=== PATIENT | male | born 1930 | race Caucasian/White ===

== ENCOUNTER 2017-10-16 09:35 | Emergency (ER) | payer MEDICARE, BC ==
[2017-10-16 09:41] VITALS: TEMP 97.1
[2017-10-16 10:17] LABS: HEMATOCRIT 39 % (39-53); MEAN CORPUSCULAR HGB CONC 33.8 gm/dl (32.0-36.0); MEAN CORPUSCULAR VOLUME 85 fL (80-100)
[2017-10-16 10:34] LABS: BASOPHILS % (MANUAL) 0 % (0-3); EOSINOPHILS % (MANUAL) 3 % (0-9); LYMPHOCYTES % (MANUAL) 47 % (10-50); PLATELET MORPHOLOGY COMMENT ADEQUATE
[2017-10-16 10:35] LABS: NORMAL RBCS NORMAL RBCS
[2017-10-16 10:39] LABS: APPEARANCE,URINE Slightly Cloudy; BILIRUBIN,URINE NEGATIVE (NEGATIVE); COLOR,URINE Yellow; GLUCOSE, URINE (UA) NEGATIVE (NEGATIVE); KETONES,URINE NEGATIVE (NEGATIVE); LEUKOCYTE ESTERASE ,URINE NEGATIVE (NEGATIVE); NITRATE,URINE NEGATIVE (NEGATIVE); OCCULT BLOOD,URINE NEGATIVE (NEG-TRACE)
[2017-10-16 10:40] LABS: ALBUMIN 3.5 gm/dl (3.4-5.0); ALT 32 IU/L (14-63); CALCIUM 8.6 mg/dl (8.5-10.1); GLOM FILT RATE 60 mL/min (>60); POTASSIUM 4.6 mMol/L (3.5-5.1); SODIUM 138 mMol/L (136-145); THYROID STIMULATING HORMONE 5.151 uIU/ml (0.358-3.740)
[2017-10-16 10:51] LABS: RBC,URINE NEG (0-3AV/HPF)
[2017-10-16 11:47] VITALS: BP 179/85; PULSE 65; RESP 15; O2SAT 97
== END 2017-10-16 11:40 | disposition home or self-care (01) | DRG 312 ==
LOC: ED 09:35
DX: R55 Syncope and collapse (principal); I69.391 Dysphagia following cerebral infarction; Z79.899 Other long term (current) drug therapy
CPT/HCPCS: 36415; 80053; 81001; 84443; 84484; 85007; 85027; 85610; 93005; 99285

== ENCOUNTER 2018-04-27 09:46 | Day surgery (SDC) | payer MEDICARE, BC ==
[~2018-04-27 09:46] MED LIST: MIDAZOLAM 2 MG/2 ML SOL ONE
[2018-04-27] MEDS ORDERED: ACETAZOLAMIDE 250 MG PO ONE (09:53)
[2018-04-27] MEDS: CYCLOPENTOLATE 1% SOL ONE ×2 (10:25→10:38)
[2018-04-27] MEDS: PROPARACAINE HCL 0.5% OPHTHALMIC SOL ONE ×3 (10:25→11:45)
[2018-04-27] MEDS: PHENYLEPHRINE HCL 10% OPHTHAL SOL ONE ×2 (10:26→10:39)
[2018-04-27] MEDS: KETOROLAC 0.5% OPTH 60 DROP SOL ONE ×2 (10:26→10:39)
[2018-04-27] MEDS ORDERED: POVIDONE IODINE 5% SOL ONE (11:41)
[2018-04-27] MEDS ORDERED: BSS 500 ML 500 ML IR ONE (11:41)
[2018-04-27] MEDS ORDERED: LIDOCAINE HCL 1% MPF 30 SOL ONE (11:41)
[2018-04-27 12:52] VITALS: BP 160/67; PULSE 64; RESP 20; TEMP 97.4; O2SAT 99
== END 2018-04-27 13:11 | disposition home or self-care (01) | DRG 125 ==
LOC: SURG 09:46
PROVIDERS: ATTEND Ophthalmology
DX: H25.9 Unspecified age-related cataract (principal); H40.10X2 Unspecified open-angle glaucoma, moderate stage
CPT/HCPCS: 0191T; 66984; J2250; A9270-GY; C1783; J2001

== ENCOUNTER 2018-05-22 09:47 | Day surgery (SDC) | payer MEDICARE, BC ==
[2018-05-22] MEDS: ACETAZOLAMIDE 250 MG PO ONE ×2 (10:00→10:06)
[2018-05-22] MEDS: PROPARACAINE HCL 0.5% OPHTHALMIC SOL ONE ×3 (10:03→11:25)
[2018-05-22] MEDS: PHENYLEPHRINE HCL 10% OPHTHAL SOL ONE ×2 (10:03→10:19)
[2018-05-22] MEDS: CYCLOPENTOLATE 1% SOL ONE ×2 (10:03→10:19)
[2018-05-22] MEDS: KETOROLAC 0.5% OPTH 60 DROP SOL ONE ×2 (10:03→10:19)
[2018-05-22] MEDS ORDERED: FENTANYL 100MCG/2ML SOL ONE (10:55)
[2018-05-22] MEDS ORDERED: MIDAZOLAM 2 MG/2 ML SOL ONE (11:02)
[2018-05-22] MEDS ORDERED: BSS 500 ML 500 ML IR ONE (11:20)
[2018-05-22] MEDS ORDERED: LIDOCAINE HCL 1% MPF 30 SOL ONE (11:20)
[2018-05-22] MEDS ORDERED: POVIDONE IODINE 5% SOL ONE (11:20)
[2018-05-22 12:13] VITALS: RESP 20; TEMP 97.5
[2018-05-22 12:17] VITALS: BP 161/72; PULSE 68; O2SAT 98
== END 2018-05-22 12:30 | disposition home or self-care (01) | DRG 125 ==
LOC: SURG 09:47
PROVIDERS: ATTEND Ophthalmology
DX: H25.9 Unspecified age-related cataract (principal); H40.10X2 Unspecified open-angle glaucoma, moderate stage; H26.2 Complicated cataract
CPT/HCPCS: J2250; J3010; A9270-GY; J2001